=== PATIENT | female | born 2000 | race African-American/Black ===

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

== ENCOUNTER 2019-01-15 07:00 | Inpatient (IN) | payer MEDICAID, OTHER ==
[~2019-01-15] VITALS: Ht 152.4 cm; Wt 58.8 kg
[2019-01-15 07:45] LABS: ALBUMIN 4.6 gm/dL (3.5-5.0); BILIRUBIN,TOTAL 0.8 mg/dL (0.0-1.0); CALCIUM 9.4 mg/dL (8.4-10.2); CREATININE, serum 0.61 (0.52-1.25); POTASSIUM 3.9 mmol/L (3.4-5.0); TOTAL PROTEIN 8.9 gm/dL (6.4-8.2)
[2019-01-15 07:46] LABS: BASO # 0.1 (0.0-0.2); BASO % 0.4 % (0.0-2.0); EOS % 0.1 % (0-4.0); GRAN # 14.1 (1.4-6.5); GRAN % 83.6 % (42.2-75.2); HEMOGLOBIN 10.7 g/dl (12.0-15.0); LYMPH # 1.5 (1.2-3.4); MEAN CELL VOLUME 71 fl (80.0-95.0); MEAN CORPUSCULAR HEMOGLOBIN 23 pg (26.0-32.0); MEAN CORPUSCULAR HGB CONC 33 g/dl (33.0-37.0); MEAN PLATELET VOLUME 10.4 fl (7.4-10.4); MONO # 1.1 (0.1-0.6); MONO % 6.4 % (1.7-9.3); PLATELET COUNT 238 K/mm3 (130-400); REDCELL DISTRIBUTION WIDTH-CV 14.6 % (11.5-14.5); RETIC # 0.15 M/mm3 (0.02-0.16); RETIC % 3.3 % (0.5-3.52)
[2019-01-15 07:52] LABS: HEMATOCRIT 32.7 % (35.0-45.0)
[2019-01-15 09:04] LABS: COLLECTION METHOD CLEAN CATCH
[2019-01-15 09:21] LABS: MUCOUS Present /lpf; PH 5 (5-8); URINE APPEARANCE Clear; URINE BACTERIA None Seen /hpf; URINE BILIRUBIN Negative (NEGATIVE); URINE BLOOD Negative (NEGATIVE); URINE COLOR Yellow; URINE GLUCOSE Negative (NEGATIVE); URINE KETONE Trace (NEGATIVE); URINE LEUKOCYTE ESTERASE Negative (NEGATIVE); URINE NITRATE Negative (NEGATIVE); URINE PROTEIN(semi-quant) Negative (NEGATIVE); URINE RBC 0-2 /hpf; URINE UROBILINOGEN Negative (NEGATIVE)
--- NOTE | 2019-01-15 12:59 | NUR ---
Pt up to room 315. Admission, med rec, pharmacy and allergy completed. Pt A&O, c/o sharp pain "all over but mostly in legs". Rating pain 10/10. Denies dizziness, SOB, chest pain, vomiting, diarrhea. pt states she has some nausea. Lung sounds clear, heart rate tachy. Pulses strong bilaterally. Pt on room air. Pt has RAC INT IV that flushes well with no complications. LISSETH Morillo in to visit with patient. Pt denies other needs at this time. pt encouraged to use call light for assistance.
[2019-01-15 14:30] VITALS: BP 116/69; PULSE 104; TEMP 98.5
--- NOTE | 2019-01-15 14:35 | NUR ---
Pt resting in bed, PRN [place] administered. IVF started at 100 ml/hr with no complications. Will reassess pain.
--- NOTE | 2019-01-15 15:36 | NUR ---
Pt stating she is having pain in legs, rating it at 7. Pt requesting PRN morphine. IVF rate increased to 150 ml/hr. Pt placed on 2L NC. No other concerns voiced at this time. Fiance at bedside.
[2019-01-15 17:09] VITALS: BP 105/66; PULSE 88; TEMP 98.4
--- NOTE | 2019-01-15 18:23 | NUR ---
Pt resting in bed, c/o nausea, PRN zofran administered. Rating pain at 7/10. Per pt "more focused on the nausea". No other concerns voiced.
[2019-01-15 19:49] VITALS: BP 102/50; PULSE 94; TEMP 98
--- NOTE | 2019-01-15 20:30 | NUR ---
Initial shift assessment done- states having pain lower extremities 10/18, will give Morphine IV as ordered, IV fluids of NS at 150cc/hr, o2 at 2L/nc, no other requests- has been able to rest
[2019-01-16] VITALS (8 sets, daily range): BP systolic 90–124; BP diastolic 50–78; PULSE 62–104; TEMP 97.5–101
--- NOTE | 2019-01-16 01:15 | NUR ---
Dr. Avila called regarding temp 101- orders for blood cultures, u/a, cxr, and tylenol obtained
--- NOTE | 2019-01-16 02:30 | NUR ---
Dr. Avila called ; pt states Morphine is not working for pain control- states pain remains 10/18,, dose incease to 4mg Morphine every 2 hours- doctor also gave orders for Benadryl and Colace
[2019-01-16 03:17] LABS: COLLECTION METHOD CLEAN CATCH
[2019-01-16 03:22] LABS: MUCOUS Present /lpf; PH 5 (5-8); SQUAMOUS EPITHELIAL 0-2 /hpf; URINE APPEARANCE Clear; URINE BACTERIA None Seen /hpf; URINE BILIRUBIN Negative (NEGATIVE); URINE BLOOD Negative (NEGATIVE); URINE COLOR Straw; URINE GLUCOSE Negative (NEGATIVE); URINE KETONE Negative (NEGATIVE); URINE LEUKOCYTE ESTERASE Negative (NEGATIVE); URINE NITRATE Negative (NEGATIVE); URINE PROTEIN(semi-quant) Negative (NEGATIVE); URINE RBC 0-2 /hpf; URINE UROBILINOGEN Negative (NEGATIVE)
--- NOTE | 2019-01-16 05:30 | NUR ---
Resting quietly, VSS, Temp 98.3- IV fluids remain at 150cc/hr- Has been getting up to bathroom on own- steady on feet.
[2019-01-16 06:11] LABS: BASO # 0.1 (0.0-0.2); BASO % 0.5 % (0.0-2.0); EOS # 0.2 (0.0-0.7); EOS % 1.8 % (0-4.0); GRAN # 6.8 (1.4-6.5); GRAN % 68.1 % (42.2-75.2); LYMPH % 19.7 % (20.0-51.0); MEAN CELL VOLUME 74 fl (80.0-95.0); MEAN CORPUSCULAR HGB CONC 32 g/dl (33.0-37.0); MONO % 9.6 % (1.7-9.3); PLATELET COUNT 201 K/mm3 (130-400); RED BLOOD COUNT 3.98 M/mm3 (4.10-5.30); REDCELL DISTRIBUTION WIDTH-CV 14.4 % (11.5-14.5)
[2019-01-16 06:13] LABS: HEMATOCRIT 29.3 % (35.0-45.0); HEMOGLOBIN 9.3 g/dl (12.0-15.0); MEAN CORPUSCULAR HEMOGLOBIN 23 pg (26.0-32.0)
[2019-01-16 06:21] LABS: CALCIUM 8.4 mg/dL (8.4-10.2); CREATININE, serum 0.48 (0.52-1.25); POTASSIUM 4.1 mmol/L (3.4-5.0)
--- NOTE | 2019-01-16 10:26 | NUR ---
SW's met with the patient to discuss discharge plan. The patient lives in [place] with her fiance, Larry Costa (ph#[phone]). She reports independence with ADLs and does not have any DME. The patient does not have a primary care provider, but she was intereseted with being set up with one. MERRILL provided the patient with a list of the different providers in [place]. She receives her medications at the [facility] in [place]. She reports no difficulties obtaining her meds. The patient's insurance is [employer] out of [place]. MERRILL consulted Financial Counselor, Lindsey. Lindsey or Brandon to meet with the patient to complete a Medicaid alondra. The patient was interested in completing a DPOA-HC. MERRILL provided form. The patient designated her fiance and her mother, Jamee Crowder (ph#[phone]). MERRILL and Nereyda MOMIN, witnessed the patient's signature. The patient was provided with the original and some copies. A copy was placed in the patient's chart. The patient plans to return back home with her fiance upon discharge. SW to continue to follow.
--- NOTE | 2019-01-16 10:45 | NUR ---
Pt assessment completed and charted. Morning medications adminsitered per JUN. Pt rating leg pain 05/21. Pt denies chest pain. Per pt she some nausea and GARVIN. Pt ambulating in room independently when fiance is here. Pt tolerated breakfast well. IVF to RAC running with no complications, rate decreased to 100 ml/hr. RVP panel collected. No other concerns noted at this time. Call light within reach.
--- NOTE | 2019-01-16 11:07 | NUR ---
Initial visit; Patient thanked Road Test Examiner for stopping and offering God's blessings.
--- NOTE | 2019-01-16 13:37 | NUR ---
Pt sitting in bed, fiance at bedside, eating lunch, tolerating well. Pt c/o of nausea earlier and then showered. Zofran adminsitered per JUN. Pt SBP 90, no pain medication administered at this time.
--- NOTE | 2019-01-16 19:45 | NUR ---
Patient is drowsy, but able to answer questions. No complaints of pain at this time. Patient is having nausea, zofran given.
[2019-01-17 03:29] VITALS: BP 90/50; PULSE 67
--- NOTE | 2019-01-17 05:33 | NUR ---
Patient has been able to rest this shift. Patient has been afebrile this shift. Has not requested any pain medication. Patient did request zofran early on in the shift but has not needed anyting since. Fiance at bedside.
--- NOTE | 2019-01-17 07:00 | NUR ---
Agree with shift assessments and notes this shift
[2019-01-17 07:44] LABS: BASO # 0.1 (0.0-0.2); BASO % 0.6 % (0.0-2.0); EOS # 0.4 (0.0-0.7); EOS % 5.5 % (0-4.0); GRAN # 4.6 (1.4-6.5); GRAN % 59.3 % (42.2-75.2); LYMPH # 2.2 (1.2-3.4); LYMPH % 28.3 % (20.0-51.0); MEAN CELL VOLUME 73 fl (80.0-95.0); MEAN CORPUSCULAR HGB CONC 33 g/dl (33.0-37.0); MEAN PLATELET VOLUME 10.5 fl (7.4-10.4); MONO # 0.5 (0.1-0.6); PLATELET COUNT 196 K/mm3 (130-400); RED BLOOD COUNT 4.05 M/mm3 (4.10-5.30); REDCELL DISTRIBUTION WIDTH-CV 14.4 % (11.5-14.5)
[2019-01-17 07:52] LABS: HEMATOCRIT 29.5 % (35.0-45.0); HEMOGLOBIN 9.6 g/dl (12.0-15.0); MEAN CORPUSCULAR HEMOGLOBIN 24 pg (26.0-32.0)
[2019-01-17 07:54] LABS: CALCIUM 8.8 mg/dL (8.4-10.2); CREATININE, serum 0.51 (0.52-1.25); POTASSIUM 3.9 mmol/L (3.4-5.0)
[2019-01-17 08:30] VITALS: BP 116/60; PULSE 83; TEMP 97.8
--- NOTE | 2019-01-17 09:58 | NUR ---
Pt assessment completed and charted. Pt A&O, morning medications administered per MAR. Pt denies pain at this time, states she has some nausea still but has not vomited. Pt tolerating breakfast well. Pt states she has some lightheadedness. Pt on room air at this time, encouraged to use her O2 and IS. Pt states she "wears the O2 and then takes it off after awhile". RAC with NS infusing w/ no complications. No other concerns voiced at this time. Call light within reach.
[2019-01-17 12:40] VITALS: BP 105/64; PULSE 89; TEMP 98.7
[2019-01-17] MEDS ORDERED: HYDROXYURE500 MG/CAP PO (12:52)
[2019-01-17] MEDS ORDERED: NORCO 325 MG-101 TAB PO (13:52)
--- NOTE | 2019-01-17 14:02 | NUR ---
SW followed up with the patient and the patient's fiance on preference for PCP. The patient chose the [facility] and she did not have a preference on provider. MERRILL contacted the [facility] and secured the patient and appointment with Dr. Javier Hatch for Tuesday, 01/26, at 1415. MERRILL informed the patient and the community health nurse of the appointment. No additional needs at this time.
[2019-01-17 16:20] VITALS: BP 94/57; PULSE 70; TEMP 97.9
--- NOTE | 2019-01-17 19:28 | NUR ---
Pt discharge instructions discussed and reviewed with patient who verbalized understanding. Pt RAC IV dc'd with catheter intact and no complications. No other concerns voiced. Pt escorted out via WC by this nurse.
== END 2019-01-17 16:45 | disposition home or self-care (01) | DRG 812 ==
LOC: COL.ER 07:00 → MEDICAL 11:08
PROVIDERS: Emergency Medicine; Nurse Practitioner Family; Student in an Organized Health Care Education/Training Program; ADMIT Internal Medicine
DX: D57.00 Hb-SS disease with crisis, unspecified (principal); R65.10 Systemic inflammatory response syndrome (SIRS) of non-infectious origin without acute organ dysfunction; J06.9 Acute upper respiratory infection, unspecified
CPT/HCPCS: 99232-AI; 99239; A4216; A9284; J0696; J1170; J2270; J2405; J2550; J7030

== ENCOUNTER 2019-01-22 15:23 | Emergency (ER) | payer OTHER ==
[~2019-01-22] VITALS: Ht 152.4 cm; Wt 57.3 kg
[~2019-01-22 15:23] MED LIST changes: +HYDROXYURE500 MG/CAP PO
[2019-01-22 15:28] VITALS: TEMP 98
[2019-01-22 15:47] LABS: COLLECTION METHOD CLEAN CATCH
[2019-01-22 16:03] LABS: BASO # 0.1 (0.0-0.2); BASO % 0.9 % (0.0-2.0); EOS # 0.2 (0.0-0.7); EOS % 2.7 % (0-4.0); GRAN # 5.4 (1.4-6.5); HEMOGLOBIN 10.4 g/dl (12.0-15.0); LYMPH # 2.6 (1.2-3.4); LYMPH % 29.2 % (20.0-51.0); MEAN CELL VOLUME 73 fl (80.0-95.0); MEAN CORPUSCULAR HEMOGLOBIN 24 pg (26.0-32.0); MEAN CORPUSCULAR HGB CONC 33 g/dl (33.0-37.0); MEAN PLATELET VOLUME 10.9 fl (7.4-10.4); MONO # 0.6 (0.1-0.6); MONO % 6.9 % (1.7-9.3); PLATELET COUNT 304 K/mm3 (130-400); RED BLOOD COUNT 4.39 M/mm3 (4.10-5.30); REDCELL DISTRIBUTION WIDTH-CV 15.7 % (11.5-14.5); RETIC # 0.16 M/mm3 (0.02-0.16); RETIC % 3.7 % (0.5-3.52)
[2019-01-22 16:09] LABS: MUCOUS Present /lpf; PH 6 (5-8); URINE APPEARANCE Hazy; URINE BACTERIA Rare /hpf; URINE BILIRUBIN Negative (NEGATIVE); URINE BLOOD Negative (NEGATIVE); URINE COLOR Yellow; URINE GLUCOSE Negative (NEGATIVE); URINE KETONE Negative (NEGATIVE); URINE LEUKOCYTE ESTERASE 2+ (NEGATIVE); URINE NITRATE Negative (NEGATIVE); URINE PROTEIN(semi-quant) Negative (NEGATIVE); URINE RBC 0-2 /hpf; URINE UROBILINOGEN Negative (NEGATIVE); URINE WBC 20-50 /hpf
[2019-01-22 16:13] LABS: ALBUMIN 4.5 gm/dL (3.5-5.0); BILIRUBIN,TOTAL 0.7 mg/dL (0.0-1.0); CALCIUM 9.2 mg/dL (8.4-10.2); CREATININE, serum 0.54 (0.52-1.25); TOTAL PROTEIN 8.9 gm/dL (6.4-8.2)
[2019-01-22 17:04] VITALS: BP 114/65
[2019-01-22] MEDS ORDERED: CEPHALEXIN500 M1 PO (17:12)
[2019-01-22 17:24] VITALS: PULSE 83
[2019-01-24] MEDS ORDERED: MACROBID 1100 MG/CAP PO (13:23)
== END 2019-01-22 17:24 | disposition home or self-care (01) ==
LOC: COL.ER 15:23
PROVIDERS: Emergency Medicine
DX: N39.0 Urinary tract infection, site not specified (principal)
CPT/HCPCS: A4216; J0696; J1885; J7030

== ENCOUNTER 2019-05-10 05:26 | Emergency (ER) | payer MEDICAID ==
[~2019-05-10] VITALS: Ht 152.4 cm; Wt 59.1 kg
[~2019-05-10 05:26] MED LIST changes: +CEPHALEXIN500 M1 PO; +MACROBID 1100 MG/CAP PO
[2019-05-10 05:32] VITALS: BP 120/71; TEMP 97.7
[2019-05-10 05:46] LABS: COLLECTION METHOD CLEAN CATCH
[2019-05-10 06:00] LABS: BUDDING YEAST Present /hpf; PH 5 (5-8); URINE APPEARANCE Cloudy; URINE BACTERIA Rare /hpf; URINE BILIRUBIN Negative (NEGATIVE); URINE BLOOD 2+ (NEGATIVE); URINE COLOR Yellow; URINE GLUCOSE Negative (NEGATIVE); URINE KETONE Negative (NEGATIVE); URINE LEUKOCYTE ESTERASE 3+ (NEGATIVE); URINE NITRATE Negative (NEGATIVE); URINE PROTEIN(semi-quant) 1+ (NEGATIVE); URINE RBC >50 /hpf; URINE UROBILINOGEN Negative (NEGATIVE)
[2019-05-10] MEDS ORDERED: DIFLUCAN200 MG PO (06:19)
[2019-05-10] MEDS ORDERED: PYRIDIUM200 M1 PO (06:19)
[2019-05-10] MEDS ORDERED: CEFTIN500 MG PO (06:19)
[2019-05-10 06:36] VITALS: PULSE 83
[2019-05-12] MEDS ORDERED: MACROBID 1100 MG/CAP PO (17:55)
== END 2019-05-10 06:45 | disposition home or self-care (01) ==
LOC: COL.ER 05:26
PROVIDERS: Emergency Medicine
DX: N39.0 Urinary tract infection, site not specified (principal); B37.9 Candidiasis, unspecified; D57.1 Sickle-cell disease without crisis

== ENCOUNTER 2019-05-12 21:03 | Emergency (ER) | payer MEDICAID ==
[~2019-05-12] VITALS: Ht 152.4 cm; Wt 59.1 kg
[~2019-05-12 21:03] MED LIST changes: +CEFTIN500 MG PO; +DIFLUCAN200 MG PO; +PYRIDIUM200 M1 PO
[2019-05-12 21:08] VITALS: BP 122/59; TEMP 97.7
[2019-05-12] MEDS ORDERED: CIPRO 500MG TA500 MG PO (21:59)
[2019-05-12] MEDS ORDERED: PHENERGAN 25 TA25 MG PO (21:59)
[2019-05-12 22:12] VITALS: PULSE 85
== END 2019-05-12 22:12 | disposition home or self-care (01) ==
LOC: COL.ER 21:03
DX: N12 Tubulo-interstitial nephritis, not specified as acute or chronic (principal); D57.1 Sickle-cell disease without crisis; Z16.12 Extended spectrum beta lactamase (ESBL) resistance